=== PATIENT | male | born 1970 | race Caucasian/White ===

== ENCOUNTER 2017-06-22 15:12 | Inpatient (IN) | payer MEDICAID, SELFPAY ==
--- NOTE | 2017-06-22 15:20 | PCM.HP.STD ---
Problem List (1) Multiple sclerosis Status: Chronic (2) Crohns disease Status: Chronic Qualifiers: Gastrointestinal tract location: unspecified location Digestive disease complication type: unspecified complication Qualified Code(s): K50.919 - Crohn's disease, unspecified, with unspecified complications (3) Anxiety and depression Status: Chronic (4) ADHD Status: Chronic Qualifiers: Attention deficit-hyperactivity disorder type: unspecified Qualified Code(s): F90.9 - Attention-deficit hyperactivity disorder, unspecified type (5) Fibromyalgia Status: Chronic (6) Tobacco use Status: Chronic (7) DDD (degenerative disc disease) Status: Chronic Qualifiers: Mid-cervical spinal level: unspecified (8) Chronic back pain Status: Chronic Qualifiers: Back pain location: back pain in unspecified location (9) Sciatica Status: Chronic Qualifiers: Laterality: unspecified laterality Qualified Code(s): M54.30 - Sciatica, unspecified side (10) IV drug abuse Status: Chronic (11) Opiate abuse, continuous Status: Chronic (12) Accidental overdose Status: Chronic Qualifiers: Encounter type: sequela Qualified Code(s): T50.901S - Poisoning by unspecified drugs, medicaments and biological substances, accidental (unintentional), sequela History of Present Illness Date of Admission: 06/22/17 Chief Complaint: Acute Opiate Withdrawal The patient is a 47 y/o M w/ PMHx: DDD w/ Chronic Back Pain, Fibromyalgia, MS, Crohn's Disease, Anxiety and Depression/ADHD, History of IVDA w/ 6 prior OD, accidental with ongoing usage 1 gm-1.5 gm daily fentanyl in addition to occasional Cannabis who presents to the [facility] at [facility] on 06/22/17 w/ noted opiate withdrawal onset starting AM following last dose 7 pm 06/21/17 with following his 6th accidental OD, found per his spouse, requiring EMS evaluation, narcan and oxygen administration with follow-up ED evaluation, now with abdominal pain/cramping, generalized body aches and pains, rhinorrhea, piloerection, fatigue, restless leg, sweating, yawning. Patient interested in attaining clean status. He notes hiding this from his family. He was prior the working spouse, but now his works and he has been taking care of his children, including near toddler twins. Past Medical History Past Medical History (Chronic Problems): Chronic Problems Multiple sclerosis (Chronic) Crohns disease (Chronic) Anxiety and depression (Chronic) ADHD (Chronic) Fibromyalgia (Chronic) Tobacco use (Chronic) DDD (degenerative disc disease) (Chronic) Chronic back pain (Chronic) Sciatica (Chronic) IV drug abuse (Chronic) Opiate abuse, continuous (Chronic) Accidental overdose (Chronic) NKDA Home Medications: Ambulatory Orders Medication Instructions Recorded Atomoxetine HCl [Atomoxetine HCl] 40 mg PO DAILY 06/22/17 Gabapentin [Neurontin] 300 mg PO TID 06/22/17 Hydroxyzine HCl [Hydroxyzine HCl] 25 mg PO Q4H 06/22/17 Ibuprofen [Ibuprofen] 800 mg PO Q6H PRN PRN 06/22/17 Methocarbamol [Robaxin] 1,000 mg PO TID PRN PRN 06/22/17 Tamsulosin HCl [Flomax] 0.4 mg PO QHS 06/22/17 Tamsulosin HCl [Flomax] 0.4 mg PO QHS 06/22/17 traZODone [Desyrel] 100 mg PO QHS 06/22/17 Surgical History: - - Appendectomy, Eye surgery. Lives: Spouse/ Significant Other Smoking Status: Current every day smoker - 2 ppd since youth. Tobacco Use: Cigarettes Alcohol: None Drugs: Marijuana, - - Fentanyl. - *Family History Maternal History Items: No pertinent history Paternal History Items: No pertinent history Review of Systems Constitutional: Reports: Anorexia, Chills, Malaise, Weakness, Fatigue. Denies: Fever, Weight Change HEENT: Reports: Head Aches, Post Nasal Drip, Sinus Congestion, Sinus Drainage Cardiovascular: Denies: Chest Pain, Palpitations Respiratory: Denies: Cough, Shortness of breath at rest, Sputum production Gastrointestinal: Reports: Abdominal Pain, Diarrhea, Nausea. Denies: Vomiting Genitourinary: Denies: Dysuria Musculoskeletal: Reports: Back Pain, Joint Pain, Muscle pain. Denies: Joint Tenderness Skin: Denies: Rash, Wounds Neurological: Denies: Numbness, Tingling, Focal weakness Psychiatric: Reports: Anxiety, Depression. Denies: Homicidal Ideations, Suicidal Ideations Hematologic/ Lymphatic: Denies: Easy Bruising, Easy Bleeding VTE Information - Inpt Only VTE Present on Admission: No VTE Mechan Device Prophylaxis: SCD's VTE Pharm Prophylaxis ordered?: Yes Subjective: Seated upright in the bed, anxious appearing, talking fast. Objective: Physical Examination: General: awake, alert, oriented x 3 and cooperative, seated upright in bed in no apparent distress, mildly anxious appearing. Skin: normal color, turgor, no icterus, cyanosis, last injection LUE, no erythema noted. HEENT: AT/NC, EOMI, PERRLA, dry MM, rhinorrhea noted, no carotid bruits or JVD noted. Lungs: Diminished BS BL, > bases, mildly coarse, improved after coughing, occasional expiratory wheeze noted. Heart: Regular rate and rhythm; no gallop, rub audible. Abdomen: soft, mild generalized TTP, no rebound or guarding, ND, normal BS, no HSM. Extremities: no cyanosis, clubbing, or edema. Neurological: patient awake, alert, oriented x 3; cognitive function intact; pupils equally reactive to light and accomodation; cranial nerves II-XII grossly normal, moving all 4 extremities, no focal deficits, strength moderately globally decreased secondary to acute withdrawal presentation. Psychiatric: affect appears anxious, no acute evidence of depressive feelings. Assessment/Plan The patient is a 47 y/o M w/ PMHx: DDD w/ Chronic Back Pain, Fibromyalgia, MS, Crohn's Disease, Anxiety and Depression/ADHD, History of IVDA w/ 6 prior OD who presents to the [facility] at [facility] on 06/22/17 w/ noted acute opiate withdrawal. (1) Acute Opiate Withdrawal: Will admit to MS, obtain routine labs including CBC, CMP, urine for drug screen, urinalysis, serum lipase, routine EKG and will initiate and continue on [facility] service protocol with tapering course of Subutex, as needed Seroquel, Librium, Sinemet, Catapres, Bentyl, Vistaril, IV fluids, IV antiemetics, Tylenol as needed for pain. Once patient clinically improved and completion of taper nearing will plan [facility] assistance for transition to next level of rehabilitation care. CM consult given usage of IV drugs in the setting of young children. (2) Polysubstance Abuse, IVDA Hx, High Risk Hepatitis C/HIV patient: HIV, hepatitis panel pending. If Hepatitis positive, patient currently not candidate for hep C treatment currently as needs to be clean, sober x 6 months, documented attendance NA or AA meetings, counseling and ongoing negative drug screens. Encouraged PCP establishment and follow-up. (3) Tobacco Abuse: Encouraged cessation, inpatient consultation per RT, NR if desired. (4) History of Multiple Sclerosis: Fall precautions, recommendation continued PCP/Neurology evaluation outpatient, not on regimen. (5) DDD/Chronic Back Pain, Fibromyalgia: Complicates #1, position changes, fall precautions, recommendation continued PCP evaluation outpatient and other modalities for pain control. Continue gabapentin. (6) Crohn's Disease: Encourage GI evaluation outpatient, notes only following w/ PCP, no marked frequent flare history. (7) Anxiety and Depression/ADHD: Maintain on home psychiatric regimen, encourage routine counseling and follow-up. (8) DVT prophylaxis: SCDs, lovenox. Code Visit Inpatient E&M: [id number] Init Hosp L3
[2017-06-22 15:46] VITALS: BP 107/67; PULSE 76; RESP 16; TEMP 36.6; O2SAT 98
[2017-06-22 15:47] VITALS: BMI 21.7
[2017-06-22 15:49] VITALS: BMI 32.7
[2017-06-22 16:30] LABS: Hematocrit 36.2 % (40-54); Hemoglobin 11.9 g/dl (13.0-16.5); Mean Corp Hgb Conc 32.9 g/gl (32-36); Mean Corpuscular Hgb 29.6 pg (27.0-32.0); Mean Platelet Vol. 9.3 fl (6.2-12.0); Platelet Count 338 K/mm3 (150-450); RBC Distribution Width CV 15.8 % (11.6-14.6); RBC Distribution Width SD 52.1 fl (35.1-43.9); Red Blood Count 4.02 M/mm3 (4.6-6.2); White Blood Count 10.2 K/mm3 (4.4-11.0)
[2017-06-22 16:35] LABS: Scan Indicated on CBC? Y/N NO
[2017-06-22 16:40] LABS: Prothrombin Time (Protime)PT. 13.6 SECONDS (11.7-14.9)
[2017-06-22 16:47] LABS: ALB/GLOB Ratio 1.1 RATIO (0.9-2.4); AST(SGOT) 10 U/L (15-37); Alanine Aminotransfer ALT/SGPT 15 U/L (16-61); Albumin, Serum 3.8 g/dL (3.2-5.0); Alkaline Phosphatase 76 U/L (45-117); Anion Gap 5 (5-15); BUN 10 mg/dL (7-18); BUN/Creat Ratio 13.2 RATIO (10-20); Calcium,Total 8.5 mg/dL (8.5-10.1); Chloride 114 mmol/L (98-107); Creatinine, Serum 0.76 mg/dL (0.70-1.30); EST Glomerular Filtration Rate 116 mL/min (>60); Est Glom Filt Rate - Afr Amer 140 mL/min (>60); Estimated Creatinine Clearance 117.22 ml/min; Globulin 3.6 g/dL (2.2-4.2); Glucose 92 mg/dL (74-106); Lipase 73 U/L (73-393); Magnesium 2.2 mg/dL (1.6-2.6); Phosphorus 2.4 mg/dL (2.5-4.9); Potassium 3.4 mmol/L (3.5-5.1); Protein, Total 7.4 g/dL (6.4-8.2); Sodium Level 144 mmol/L (136-145)
[2017-06-22] MEDS: Lactated Ringers 1,000 ML 125 ML IV (17:00)
[2017-06-22] MEDS: Gabapentin 300 MG Capsule 900 MG PO (17:05)
[2017-06-22] MEDS: CLARIFY ORDER NOTE (17:06)
[2017-06-22] MEDS: Buprenorphine HCl 2 MG TAB.SUBL 4 MG SL (17:10)
[2017-06-22] MEDS: chlordiazePOXIDE 25 MG Capsule PO ×2 (17:10→20:53)
[2017-06-22] MEDS: Methocarbamol 750 MG Tablet PO (17:20)
[2017-06-22] MEDS: Dicyclomine 10 MG Capsule 20 MG PO (17:21)
[2017-06-22] MEDS: Pramipexole Di-HCl 0.25 MG Tablet PO (17:21)
[2017-06-22 17:47] LABS: HIV - WCH Non-Reactive (Nonreactive)
[2017-06-22 18:00] VITALS: BP 103/62; PULSE 82; RESP 18; TEMP 36.8
[2017-06-22] MEDS: Ipratropium/Albuterol Sulfate 3 ML AMPUL.NEB INHALATION (19:51)
[2017-06-22 19:53] VITALS: PULSE 62; RESP 16
[2017-06-22] MEDS: Famotidine 20 MG Tablet PO (20:55)
[2017-06-22] MEDS: traZODone 100 MG Tablet PO (20:55)
[2017-06-22] MEDS: Tamsulosin HCl 0.4 MG Capsule PO (20:55)
[2017-06-22 20:57] VITALS: BP 134/77; PULSE 79; RESP 18; TEMP 36.6; O2SAT 92
[2017-06-22] MEDS: QUEtiapine 25 MG Tablet PO (21:12)
[2017-06-22] MEDS: cloNIDine HCl 0.1 MG Tablet PO (21:12)
[2017-06-22] MEDS: Ibuprofen 600 MG Tablet PO (21:12)
[2017-06-22 21:22] VITALS: PULSE 79; RESP 18; O2SAT 92
[2017-06-23] VITALS (17 sets, daily range): BP systolic 109–170; BP diastolic 60–98; PULSE 69–116; RESP 10–18; TEMP 36.4–37.4; O2SAT 91–100
[2017-06-23] MEDS: hydrOXYzine PAM 25 MG Capsule 50 MG PO (00:32)
[2017-06-23] MEDS: chlordiazePOXIDE 25 MG Capsule PO (00:32)
[2017-06-23] MEDS: Acetaminophen 500 MG Tablet PO ×2 (00:32→21:42)
[2017-06-23] MEDS: Buprenorphine HCl 2 MG TAB.SUBL 4 MG SL ×2 (00:32→14:02)
[2017-06-23] MEDS: Ondansetron ODT 4 MG Tablet PO ×3 (00:33→21:55)
[2017-06-23 01:06] LABS: Amphetamine Urine VISTA NEGATIVE (<1000 ng/mL); Barbiturate Urine VISTA NEGATIVE (< 200 ng/mL); Benzodiazepine Urine VISTA POSITIVE (< 200 ng/mL); Cocaine Urine VISTA NEGATIVE (< 300 ng/mL); Ecstacy Urine VISTA NEGATIVE (< 500 ng/mL); Methadone Urine VISTA NEGATIVE (< 300 ng/mL); PCP Urine VISTA NEGATIVE (< 25 ng/mL); THC Urine VISTA POSITIVE (< 50 ng/mL); Vista UDS pH Range 6
[2017-06-23] MEDS: cloNIDine HCl 0.1 MG Tablet PO (04:15)
--- NOTE | 2017-06-23 04:16 | PCM.PN.BLA ---
Progress Note Night hospitalist note: Responded to FISH BIN TENDER at 0410. Pt is admitted to the hospital for medical stabilization for withdrawal from narcotics. Has had six OD's in the past. The most recent a few days ago. He was unarousable but breathing. He finally aroused with a vigorous sternal rub. By the time I arrived he was sitting up in bed and talking. He was on both a Suboxone taper and scheduled Librium every 4 hours and also Trazodone 100 mg at HS. He had The Trazodone, Seroquel 25 mg, 50 mg of Vistaril, suboxone and Librium between 10 PM and MN. He is currently alert and responding appropriately. Will discontinue the Librium and continue the Suboxone taper.
--- NOTE | 2017-06-23 04:20 | NURSING ---
BEAM BUILDER HELPER called at 0405hrs due to pt being unrousable. BLAINE Cam attempted with voice and sternal rub to wake pt with no success prior to calling this nurse who also attempted with BLAINE James to sternal rub patient. Vitals as charted, blood sugar taken and upon arrival of BEAM BUILDER HELPER team further sternal rubs successful. Pt initially disorientated and falling back asleep prior to waking for slightly longer periods. Dr Munoz arrived at 0411hrs and reviewed pt, d/c'ing librium. Cont to monitor pt. No further orders at this time.
[2017-06-23 04:21] LABS: Bedside Glucose 183 mg/dL (70-110)
--- NOTE | 2017-06-23 04:24 | NURSING ---
Went in Pt room to do vitals @0350, could not get Pt to wake up. Sternal rubbed, would still not wake up. Called drapery cutter Sharyn, she sternal rubbed, Pt would still not wake up. Took blood sugar. Called GUN STOCK CHECKER. VOLLEYBALL REFEREEBLAINE brown rubbed and Pt woke up. AOx3. Pt still lethargic, but will open eyes.
--- NOTE | 2017-06-23 04:26 | PN_ITS ---
Progress Note Night hospitalist note: Responded to TIP BANDING MACHINE OPERATOR at 0410. Pt is admitted to the hospital for medical stabilization for withdrawal from narcotics. Has had six OD's in the past. The most recent a few days ago. He was unarousable but breathing. He finally aroused with a vigorous sternal rub. By the time I arrived he was sitting up in bed and talking. He was on both a Suboxone taper and scheduled Librium every 4 hours and also Trazodone 100 mg at HS. He had The Trazodone, Seroquel 25 mg, 50 mg of Vistaril, suboxone and Librium between 10 PM and MN. He is currently alert and responding appropriately. Will discontinue the Librium and continue the Suboxone taper.
[2017-06-23 07:26] LABS: Bedside Glucose 233 mg/dL (70-110)
--- NOTE | 2017-06-23 07:57 | NURSING ---
Went in with Magaly RN to assess patient. Patient was unresponsive. Tried sternal rubbing with no success in waking patient. Rapid response was called. Pt finally responded AOx3. Non-rebreather was placed as O2 was low on nasal canula. Telemetry was placed. Blood sugar rechecked. Dr Manuel discontinued meds and said he will recheck patient 0900, but keeping on floor at this time.
--- NOTE | 2017-06-23 08:52 | NURSING ---
preston quiñonez robotics testing technician and [facility] kong in here to staci pt. pt still with lower resp. opens eyes with verbal stimuli but unable to stay focused or stay awake.
--- NOTE | 2017-06-23 09:31 | PN_ITS ---
Addendum entered and electronically signed by DIANA Trinidad 06/23/17 10:20: Code Visit This patient was seen by DIANA Trinidad under the supervision of Dr. Manuel. Original Note: Subjective: Patient seen and examined. Rapid response was called early this morning due to patient unresponsive. Patient remains lethargic, awakens to light touch. No signs or symptoms of distress. Unable to stay alert for conversation. Sedating medications were discontinued. - Physical Exam General: Lethargic Oral: Dry Mucosa Neck: Supple, No JVD, Negative Carotid Bruits Lungs: Clear to auscultation, Diminished Cardiovascular: Regular rate, Regular Rhythm, Normal S1, Normal S2, No murmurs Abdomen: Bowel Sounds Present, Soft, Non Tender, Non-Distended Extremities: No clubbing, No cyanosis, No edema, Capillary Refill Less than 3 Seconds Skin: No rashes, No breakdown Musculoskeletal: No Tenderness to Palpation of Joints or Extremities Neurological: Cranial nerves II-XII grossly intact, Neuro grossly intact Psych/Mental Status: - - Unable to assess due to lethargy Vital Signs Temp Pulse Resp BP Pulse Ox 97.9 F 69 12 119/74 96 06/23/17 09:00 06/23/17 09:00 06/23/17 09:00 06/23/17 09:00 06/23/17 09:00 Oxygen Flow Rate (L/min) 6 Oxygen Delivery Method Non-Rebreather Weight: 70.488 kg Body Mass Index (BMI) 21.7 Intake and Output for Last 24 Hours 06/21/17 06/22/17 06/23/17 23:59 23:59 23:59 Intake Total 1396 / 1396 Balance 1396 / 1396 Laboratory Tests Past 24 Hrs 06/22/17 06/22/17 06/22/17 16:14 16:14 16:14 WBC 10.2 RBC 4.02 L Hgb 11.9 L Hct 36.2 L MCV 90.0 MCH 29.6 MCHC 32.9 RDW 15.8 H RDW Differential 52.1 H Plt Count 338 MPV 9.3 PT INR Sodium Potassium Chloride Carbon Dioxide Anion Gap BUN Creatinine Estim Creat Clear Calc Est GFR (MDRD) Af Amer Est GFR (MDRD) Non-Af BUN/Creatinine Ratio Glucose Calcium Phosphorus Magnesium Total Bilirubin AST ALT Alkaline Phosphatase Total Protein Albumin Globulin Albumin/Globulin Ratio Lipase Urine Opiates Screen Urine Methadone Screen Ur Barbiturates Screen Ur Phencyclidine Scrn Ur Amphetamines Screen U Methamphetamin-MDMA U Benzodiazepines Scrn Urine Cocaine Screen U Cannabinoids Screen Ur Drug Screen Comment Ethyl Alcohol Hepatitis A IgM Ab Pending Hepatitis A Ab Total Pending Hep Bs Antigen Pending Hep B Core Total Ab Pending Hep B Core IgM Ab Pending Hepatitis C Comment Pending HIV 1&2 Antibody Non-Reactive 06/22/17 06/22/17 06/22/17 16:14 16:14 16:14 WBC RBC Hgb Hct MCV MCH MCHC RDW RDW Differential Plt Count MPV PT 13.6 INR 1.0 Sodium 144 Potassium 3.4 L Chloride 114 H Carbon Dioxide 25.0 Anion Gap 5 BUN 10 Creatinine 0.76 Estim Creat Clear Calc 117.22 Est GFR (MDRD) Af Amer 140 Est GFR (MDRD) Non-Af 116 BUN/Creatinine Ratio 13.2 Glucose 92 Calcium 8.5 Phosphorus 2.4 L Magnesium 2.2 Total Bilirubin 0.70 AST 10 L ALT 15 L Alkaline Phosphatase 76 Total Protein 7.4 Albumin 3.8 Globulin 3.6 Albumin/Globulin Ratio 1.1 Lipase 73 Urine Opiates Screen Urine Methadone Screen Ur Barbiturates Screen Ur Phencyclidine Scrn Ur Amphetamines Screen U Methamphetamin-MDMA U Benzodiazepines Scrn Urine Cocaine Screen U Cannabinoids Screen Ur Drug Screen Comment Ethyl Alcohol 5.0 Hepatitis A IgM Ab Hepatitis A Ab Total Hep Bs Antigen Hep B Core Total Ab Hep B Core IgM Ab Hepatitis C Comment HIV 1&2 Antibody 06/23/17 00:35 WBC RBC Hgb Hct MCV MCH MCHC RDW RDW Differential Plt Count MPV PT INR Sodium Potassium Chloride Carbon Dioxide Anion Gap BUN Creatinine Estim Creat Clear Calc Est GFR (MDRD) Af Amer Est GFR (MDRD) Non-Af BUN/Creatinine Ratio Glucose Calcium Phosphorus Magnesium Total Bilirubin AST ALT Alkaline Phosphatase Total Protein Albumin Globulin Albumin/Globulin Ratio Lipase Urine Opiates Screen NEGATIVE Urine Methadone Screen NEGATIVE Ur Barbiturates Screen NEGATIVE Ur Phencyclidine Scrn NEGATIVE Ur Amphetamines Screen NEGATIVE U Methamphetamin-MDMA NEGATIVE U Benzodiazepines Scrn POSITIVE H Urine Cocaine Screen NEGATIVE U Cannabinoids Screen POSITIVE H Ur Drug Screen Comment Ethyl Alcohol Hepatitis A IgM Ab Hepatitis A Ab Total Hep Bs Antigen Hep B Core Total Ab Hep B Core IgM Ab Hepatitis C Comment HIV 1&2 Antibody POC Glucose 06/23/17 06/23/17 07:20 04:07 POC Glucose 233 H 183 H Medical Necessity - Tobacco Use Smoking Status: Current every day smoker Tobacco Use: Cigarettes Assessment/Plan Patient is a 47-year-old male admitted 06/22/2017 due to acute opiate withdrawal. He has a past medical history of degenerative disc disease with chronic back pain, fibromyalgia, multiple sclerosis, Crohn's disease, anxiety, depression, ADHD, history of 6 prior overdoses. 1. Acute opiate withdrawal-history of polysubstance abuse with 6 prior overdoses. Urine drug screen positive for benzodiazepines and cannabinoids. Medical stabilization per protocol. Patient was a rapid response this morning due to unresponsiveness. He is now arousable to light touch. Librium discontinued. Continue Suboxone taper. We will continue to monitor. 2. Tobacco dependence-encourage smoking cessation. Continue nicotine replacement patch. 3. Multiple sclerosis-not on home regimen. 4. Degenerative disc disease with chronic back pain, fibromyalgia-continue gabapentin regimen. 5. Crohn's disease-continue outpatient follow-up. 6. Anxiety/depression/ADHD-continue home regimen. DVT prophylaxis-SCDs, Lovenox subcu.
[2017-06-23] MEDS: Multivitamins,Ther W-Minerals Tablet 1 TABLET PO ×2 (13:59)
[2017-06-23] MEDS: Folic Acid 1 MG Tablet PO ×2 (13:59)
[2017-06-23] MEDS: Tamsulosin HCl 0.4 MG Capsule PO (13:59)
[2017-06-23] MEDS: Famotidine 20 MG Tablet PO ×2 (14:00)
--- NOTE | 2017-06-23 15:49 | CHAPLAIN ---
Type of Pastoral Visit ___ Initial Visit ___ Follow-up Visit ___ On-call Visit ___ General Patient Visit ___ Spiritual Assessment ___ Family Conference ___ Bereavement _x__ Rapid Response ___ Code Blue ___ Other (describe below) Pastoral Care Referral From ___ Patient ___ Family ___ Nurse ___ Physician ___ Medical Office Technology Instructor ___ Special Library Librarian ___ Other (describe below) Sacrament/Intervention ___ Active listening ___ Anointing ___ Hinduism ___ Bereavement ___ Communion ___ Roseann exploration ___ ___ Life review _x__ Prayer ___ Reconciliation ___ Sacrament of Sick _x__ Supportive presence ___ Wedding ___ Other (describe below) Pastoral Comments patient is sedated after rapid response; offered prayer and left a calling card for patient to read later
[2017-06-23] MEDS: Buprenorphine HCl 2 MG TAB.SUBL SL (21:42)
[2017-06-23] MEDS: Ibuprofen 600 MG Tablet PO (23:25)
[2017-06-23] MEDS: traZODone 100 MG Tablet PO (23:30)
[2017-06-24] VITALS (9 sets, daily range): BP systolic 106–121; BP diastolic 57–82; PULSE 51–87; RESP 16–18; TEMP 36.5–37.2; O2SAT 95
[2017-06-24 03:07] LABS: HEPATITIS B SURFACE AG Negative (Negative); Hepatitis A AB, Total Positive (Negative); Hepatitis A IgM Antibody Negative (Negative); Hepatitis B Core AB IgM Negative (Negative); Hepatitis B Core Ab Total Negative (Negative); Hepatitis C Ab 0.1 s/co ratio (0.0-0.9)
[2017-06-24] MEDS: Buprenorphine HCl 2 MG TAB.SUBL SL ×2 (05:42→14:19)
[2017-06-24] MEDS: Acetaminophen 500 MG Tablet PO ×2 (05:46→11:28)
[2017-06-24] MEDS: Thiamine Hydrochloride 100 MG Tablet PO (07:58)
[2017-06-24] MEDS: Famotidine 20 MG Tablet PO ×2 (07:59→21:35)
[2017-06-24] MEDS: ATOMOXETINE HCL 40 MG CAPSULE PO (07:59)
[2017-06-24] MEDS: Gabapentin 300 MG Capsule 900 MG PO ×3 (07:59→16:46)
[2017-06-24] MEDS: Ondansetron ODT 4 MG Tablet PO (08:03)
[2017-06-24 09:14] LABS: Hep B Surface Antibodies Non Reactive (.)
--- NOTE | 2017-06-24 09:27 | PCM.PROGNOTE ---
Subjective: Patient seen and examined. States he feels better physically. States emotionally he feels discouraged and upset with himself. Denies other complaints. Awake and alert today. Appears stable. - Physical Exam General: Alert, Oriented x3, Cooperative, No apparent distress HEENT: Atraumatic, PERRLA, EOMI, Normocephalic Neck: Supple, No JVD, Negative Carotid Bruits Lungs: Diminished, Rhonchi - few, scattered. Cardiovascular: Regular rate, Regular Rhythm, Normal S1, Normal S2, No murmurs Abdomen: Bowel Sounds Present, Soft, Non Tender, Non-Distended Extremities: No clubbing, No cyanosis, No edema, Capillary Refill Less than 3 Seconds Skin: No rashes, No breakdown Musculoskeletal: No Tenderness to Palpation of Joints or Extremities Neurological: Cranial nerves II-XII grossly intact, Neuro grossly intact Psych/Mental Status: Normal Affect, Appropriate Vital Signs Temp Pulse Resp BP Pulse Ox 97.8 F 64 18 118/81 H 94 06/24/17 07:48 06/24/17 08:43 06/24/17 07:48 06/24/17 07:48 06/23/17 21:43 Oxygen Flow Rate (L/min) 3 Oxygen Delivery Method Room Air Weight: 70.488 kg Body Mass Index (BMI) 21.7 Intake and Output for Last 24 Hours 06/22/17 06/23/17 06/24/17 23:59 23:59 23:59 Intake Total 2556 / 2556 320 / 320 Output Total 2300 / 2300 Balance 256 / 256 320 / 320 Laboratory Tests Past 24 Hrs 06/22/17 16:14 Hepatitis A IgM Ab Negative Hepatitis A Ab Total Positive H Hep Bs Antigen Negative Hep B Core Total Ab Negative Hep B Core IgM Ab Negative Hepatitis C Ab Confirm 0.1 Hepatitis C Comment Comment Medical Necessity - Tobacco Use Smoking Status: Current every day smoker Tobacco Use: Cigarettes Assessment/Plan Patient is a 47-year-old male admitted 06/22/2017 due to acute opiate withdrawal. He has a past medical history of degenerative disc disease with chronic back pain, fibromyalgia, multiple sclerosis, Crohn's disease, anxiety, depression, ADHD, history of 6 prior overdoses. 1. Acute opiate withdrawal-history of polysubstance abuse with 6 prior overdoses. Urine drug screen positive for benzodiazepines and cannabinoids. Medical stabilization per protocol. Patient was a rapid response this admission due to unresponsiveness. He is now awake, alert and oriented. Librium discontinued. Continue Suboxone taper. Will continue to monitor. 2. Toxic encephalopathy-secondary to sedating drug regimen. Resolved. 3. Tobacco dependence-encourage smoking cessation. Continue nicotine replacement patch. 4. Multiple sclerosis-not on home regimen. 5. Degenerative disc disease with chronic back pain, fibromyalgia-continue gabapentin regimen. 6. Crohn's disease-continue outpatient follow-up. 7. Anxiety/depression/ADHD-continue home regimen. 8. History of hepatitis A- Hep panel positive for hep A antibody, negative for hepatitis IgM. DVT prophylaxis-SCDs This patient was seen by DIANA Trinidad under the supervision of Dr. Manuel.
[2017-06-24] MEDS: Ibuprofen 600 MG Tablet PO (14:21)
[2017-06-24] MEDS: traZODone 100 MG Tablet PO (21:35)
[2017-06-24] MEDS: Tamsulosin HCl 0.4 MG Capsule PO (21:35)
[2017-06-25] VITALS (7 sets, daily range): BP systolic 125–133; BP diastolic 75–80; PULSE 66–85; RESP 16–20; TEMP 36.5–37.2; O2SAT 92–98
[2017-06-25] MEDS: Acetaminophen 500 MG Tablet PO ×3 (01:55→20:43)
[2017-06-25] MEDS: Buprenorphine HCl 2 MG TAB.SUBL SL ×2 (01:55→13:48)
[2017-06-25] MEDS: Ibuprofen 600 MG Tablet PO ×2 (01:56→19:26)
[2017-06-25] MEDS: Thiamine Hydrochloride 100 MG Tablet PO (08:38)
[2017-06-25] MEDS: Folic Acid 1 MG Tablet PO (08:38)
[2017-06-25] MEDS: Multivitamins,Ther W-Minerals Tablet 1 TABLET PO (08:38)
[2017-06-25] MEDS: Gabapentin 300 MG Capsule 900 MG PO ×3 (08:38→22:34)
[2017-06-25] MEDS: ATOMOXETINE HCL 40 MG CAPSULE PO (10:22)
[2017-06-25] MEDS: Famotidine 20 MG Tablet PO ×2 (10:22→22:34)
--- NOTE | 2017-06-25 10:27 | PN_ITS ---
Subjective: Patient seen and examined. States he has been feeling like bugs are crawling on his skin and has been hallucinating. Plan is for discharge to residential treatment facility Tuesday morning. Patient states he cannot return home in the meantime due to children's services investigation. Patient complains of anxiety and tremors. Denies other complaints. - Physical Exam General: Alert, Oriented x3, Cooperative, No apparent distress HEENT: Atraumatic, PERRLA, EOMI, Normocephalic Neck: Supple, No JVD, Negative Carotid Bruits Lungs: Clear to auscultation, Normal air movement Cardiovascular: Regular rate, Regular Rhythm, Normal S1, Normal S2, No murmurs Abdomen: Bowel Sounds Present, Soft, Non Tender Extremities: No clubbing, No cyanosis, No edema, Capillary Refill Less than 3 Seconds Skin: No rashes, No breakdown Musculoskeletal: No Tenderness to Palpation of Joints or Extremities Neurological: Cranial nerves II-XII grossly intact, Neuro grossly intact Psych/Mental Status: Normal Affect, Appropriate Vital Signs Temp Pulse Resp BP Pulse Ox 98.0 F 83 18 133/80 H 96 06/25/17 02:07 06/25/17 02:07 06/25/17 02:07 06/25/17 02:07 06/25/17 02:07 Oxygen Flow Rate (L/min) 3 Oxygen Delivery Method Room Air Weight: 70.488 kg Body Mass Index (BMI) 21.7 Intake and Output for Last 24 Hours 06/23/17 06/24/17 06/25/17 23:59 23:59 23:59 Intake Total 2556 / 2556 1120 / 1120 650 / 650 Output Total 2300 / 2300 Balance 256 / 256 1120 / 1120 650 / 650 Medical Necessity - Tobacco Use Smoking Status: Current every day smoker Tobacco Use: Cigarettes Assessment/Plan Patient is a 47-year-old male admitted 06/22/2017 due to acute opiate withdrawal. He has a past medical history of degenerative disc disease with chronic back pain, fibromyalgia, multiple sclerosis, Crohn's disease, anxiety, depression, ADHD, history of 6 prior overdoses. 1. Acute opiate withdrawal-history of polysubstance abuse with 6 prior overdoses. Urine drug screen positive for benzodiazepines and cannabinoids. Medical stabilization per protocol. Patient was a rapid response this admission due to unresponsiveness. He is now awake, alert and oriented. Librium discontinued. Continue Suboxone taper. Will continue to monitor. 2. Toxic encephalopathy-secondary to sedating drug regimen. Resolved. 3. Tobacco dependence-encourage smoking cessation. Continue nicotine replacement patch. 4. Multiple sclerosis-not on home regimen. 5. Degenerative disc disease with chronic back pain, fibromyalgia-continue gabapentin regimen. 6. Crohn's disease-continue outpatient follow-up. 7. Anxiety/depression/ADHD-continue home regimen. 8. History of hepatitis A- Hep panel positive for hep A antibody, negative for hepatitis IgM. DVT prophylaxis-SCDs Discharge planning-Plan for discharge to [facility] 06/27/17 0830. This patient was seen by DIANA Trinidad under the supervision of Dr. Manuel.
--- NOTE | 2017-06-25 10:36 | NURSING ---
phone call received by this RN from a Bo Buck (cell #[phone]) regarding discharge plans. Bo runs [facility], 90 day inpatient program. Bo inquiring whether patient would be able to stay until Tuesday and be admitted right into inpatient program, he feels this will be safer for patient regarding relapse risk. Verified this information with patient who states he will be going there at discharge and no longer going to [facility]. Patient states he will be able to find own transportation to inpatient facility. Will consult with .
--- NOTE | 2017-06-25 11:31 | NURSING ---
notified Bo at [facility] and patient that will plan to discharge Tuesday. patient states he will contact [facility] for transportation to center.
[2017-06-25] MEDS: Tamsulosin HCl 0.4 MG Capsule PO (22:34)
[2017-06-25] MEDS: traZODone 100 MG Tablet PO (22:34)
[2017-06-26] MEDS: Gabapentin 300 MG Capsule 900 MG PO ×3 (06:02→21:38)
[2017-06-26] MEDS: Acetaminophen 500 MG Tablet PO ×2 (06:04→14:56)
[2017-06-26] MEDS: Thiamine Hydrochloride 100 MG Tablet PO (08:36)
[2017-06-26] MEDS: Multivitamins,Ther W-Minerals Tablet 1 TABLET PO (08:36)
[2017-06-26] MEDS: Folic Acid 1 MG Tablet PO (08:36)
[2017-06-26 08:37] VITALS: BP 137/66; PULSE 67; RESP 18; TEMP 36
[2017-06-26] MEDS: ATOMOXETINE HCL 40 MG CAPSULE PO (10:37)
[2017-06-26] MEDS: Famotidine 20 MG Tablet PO ×2 (10:37→21:37)
[2017-06-26] MEDS: Ibuprofen 600 MG Tablet PO ×2 (10:42→20:49)
[2017-06-26 10:45] VITALS: PULSE 76
--- NOTE | 2017-06-26 12:31 | PN_ITS ---
Subjective: Patient seen and examined. Plans for discharge to residential inpatient treatment facility tomorrow. Patient states he feels well. Continues to complain of intermittent hallucinations. States he sees something in the shape of a mouse that will appear to read by him on occasion. Patient also states he is not able to be on gabapentin at treatment facility and wonders if there is a substitution for this medication. - Physical Exam General: Alert, Oriented x3, Cooperative, No apparent distress HEENT: Atraumatic, PERRLA, EOMI, Normocephalic Neck: Supple, No JVD, Negative Carotid Bruits Lungs: Clear to auscultation, Normal air movement Cardiovascular: Regular rate, Regular Rhythm, Normal S1, Normal S2, No murmurs Abdomen: Bowel Sounds Present, Soft, Non Tender, Non-Distended Extremities: No clubbing, No cyanosis, No edema, Capillary Refill Less than 3 Seconds Skin: No rashes, No breakdown Musculoskeletal: No Tenderness to Palpation of Joints or Extremities Neurological: Cranial nerves II-XII grossly intact, Neuro grossly intact Psych/Mental Status: Normal Affect, Appropriate Vital Signs Temp Pulse Resp BP Pulse Ox 96.8 F L 76 18 137/66 H 98 06/26/17 08:37 06/26/17 10:45 06/26/17 08:37 06/26/17 08:37 06/25/17 20:16 Oxygen Flow Rate (L/min) 3 Oxygen Delivery Method Room Air Weight: 70.488 kg Body Mass Index (BMI) 21.7 Intake and Output for Last 24 Hours 06/24/17 06/25/17 06/26/17 23:59 23:59 23:59 Intake Total 1120 / 1120 1290 / 1290 Balance 1120 / 1120 1290 / 1290 Medical Necessity - Tobacco Use Smoking Status: Current every day smoker Tobacco Use: Cigarettes Assessment/Plan Patient is a 47-year-old male admitted 06/22/2017 due to acute opiate withdrawal. He has a past medical history of degenerative disc disease with chronic back pain, fibromyalgia, multiple sclerosis, Crohn's disease, anxiety, depression, ADHD, history of 6 prior overdoses. 1. Acute opiate withdrawal-history of polysubstance abuse with 6 prior overdoses. Urine drug screen positive for benzodiazepines and cannabinoids. Medical stabilization per protocol. Patient was a rapid response this admission due to unresponsiveness. He is now awake, alert and oriented. Librium discontinued. Suboxone taper completed. 2. Toxic encephalopathy-secondary to sedating drug regimen. Resolved. 3. Tobacco dependence-encourage smoking cessation. Continue nicotine replacement patch. 4. Multiple sclerosis-not on home regimen. 5. Degenerative disc disease with chronic back pain, fibromyalgia-taper gabapentin given patient is not able to take at treatment facility. Continue Motrin 600 mg q. 8 as needed. 6. Crohn's disease-continue outpatient follow-up. 7. Anxiety/depression/ADHD-continue home regimen. 8. History of hepatitis A- Hep panel positive for hep A antibody, negative for hepatitis IgM. DVT prophylaxis-SCDs Discharge planning-Plan for discharge to [facility] 06/27/17 0830. This patient was seen by DIANA Trinidad under the supervision of Dr. Manuel.
[2017-06-26 13:18] VITALS: O2SAT 94
[2017-06-26 15:08] VITALS: BP 122/71; PULSE 77; RESP 18; TEMP 36.4
[2017-06-26 15:09] VITALS: O2SAT 100
[2017-06-26 21:35] VITALS: BP 124/77; PULSE 60; RESP 15; TEMP 35.7
[2017-06-26] MEDS: traZODone 100 MG Tablet PO (21:37)
[2017-06-26] MEDS: Tamsulosin HCl 0.4 MG Capsule PO (21:37)
[2017-06-27] VITALS: RESP 15
[2017-06-27 06:00] VITALS: BP 105/78; PULSE 70; RESP 15; TEMP 35.8; O2SAT 96
[2017-06-27] MEDS: Gabapentin 300 MG Capsule 900 MG PO (06:32)
[2017-06-27 07:08] VITALS: O2SAT 95
[2017-06-27 07:34] VITALS: BP 107/75; PULSE 67; RESP 18; TEMP 36.7; O2SAT 98
[2017-06-27 07:35] VITALS: BP 107/75; PULSE 67; RESP 18; TEMP 36.7
[2017-06-27] MEDS: Multivitamins,Ther W-Minerals Tablet 1 TABLET PO (07:38)
[2017-06-27] MEDS: Folic Acid 1 MG Tablet PO (07:38)
[2017-06-27] MEDS: Famotidine 20 MG Tablet PO (07:38)
[2017-06-27] MEDS: ATOMOXETINE HCL 40 MG CAPSULE PO (07:39)
[2017-06-27] MEDS: Thiamine Hydrochloride 100 MG Tablet PO (07:39)
--- NOTE | 2017-06-27 07:53 | PCM.DC ---
- Discharge Diagnoses Current Active Problems: Current Active and Chronic Problems Multiple sclerosis (Chronic) Crohns disease (Chronic) Anxiety and depression (Chronic) ADHD (Chronic) Fibromyalgia (Chronic) Tobacco use (Chronic) DDD (degenerative disc disease) (Chronic) Chronic back pain (Chronic) Sciatica (Chronic) IV drug abuse (Chronic) Opiate abuse, continuous (Chronic) Accidental overdose (Chronic) Reason(s) for Visit for Discharge Instructions: Opiate withdrawal You will use the following diet at home:: Regular Your food should be the consistency of: Regular Your liquids should be the consistency of: Regular/Thin Discharge Activity: Return to Normal Activity Additional Instructions: You have been strongly advised to avoid using opiates. Follow-up with your outpatient program as planned. Allergies/Adverse Reactions: Allergies No Known Allergies Allergy (Verified 06/22/17 15:47) Medications to take at Discharge Atomoxetine HCl 40 mg PO DAILY 06/22/17 Gabapentin [Neurontin] 900 mg PO TID 06/22/17 Hydroxyzine HCl 25 mg PO Q4H PRN PRN 06/22/17 Ibuprofen 800 mg PO Q6H PRN PRN 06/22/17 Methocarbamol [Robaxin] 1,000 mg PO TID PRN PRN 06/22/17 Tamsulosin HCl [Flomax] 0.4 mg PO QHS 06/22/17 traZODone [Desyrel] 100 mg PO QHS 06/22/17 Primary Care Physician: Yesi Darling,Out of [Primary Care Provider] - Please follow up with your Primary Care Physician in: in 2-3 weeks after discharge Proposed Discharge Date: 06/27/17
--- NOTE | 2017-06-27 08:17 | DS.PCM_ITS ---
Discharge Date and Diagnosis Date of Admission: 06/22/17 Date of Discharge: 06/27/17 - Primary Discharge Diagnosis Opiate withdrawal Hypokalemia - Secondary Discharge Diagnosis Chronic Problems Multiple sclerosis (Chronic) Crohns disease (Chronic) Anxiety and depression (Chronic) ADHD (Chronic) Fibromyalgia (Chronic) Tobacco use (Chronic) DDD (degenerative disc disease) (Chronic) Chronic back pain (Chronic) Sciatica (Chronic) IV drug abuse (Chronic) Opiate abuse, continuous (Chronic) Accidental overdose (Chronic) Hospital Course and Treatment None Operations: None Procedures: None Summary of Care Provided: Patient is a 47-year-old male admitted 06/22/2017 due to acute opiate withdrawal. He has a past medical history of degenerative disc disease with chronic back pain, fibromyalgia, multiple sclerosis, Crohn's disease, anxiety, depression, ADHD, history of 6 prior overdoses. 1. Acute opiate withdrawal, in a patient with history of polysubstance abuse with 6 prior overdoses. Urine drug screen positive for benzodiazepines and cannabinoids. He was admitted for medical stabilization per [facility] protocol. Patient was a rapid response in the morning following admission due to unresponsiveness, he was subsequently responsive to light touch. His admitting Librium regimen was discontinued. No other events over the course of 3 days in the hospital. He was continued on Suboxone taper and improved. He was discharged to continue with outpatient residential program. 2. Tobacco dependence-encourage smoking cessation. Managed on nicotine replacement patch. 3. Multiple sclerosis-not on home regimen. 4. Degenerative disc disease with chronic back pain, fibromyalgia, on gabapentin regimen. 5. Crohn's disease-needs to continue in the outpatient. 6. Anxiety/depression/ADHD Discharge Diet: No Restrictions Discharge Activity: Return to Normal Activity Home Medications: Medications to take at Discharge Atomoxetine HCl 40 mg PO DAILY 06/22/17 Gabapentin [Neurontin] 900 mg PO TID 06/22/17 Hydroxyzine HCl 25 mg PO Q4H PRN PRN 06/22/17 Ibuprofen 800 mg PO Q6H PRN PRN 06/22/17 Methocarbamol [Robaxin] 1,000 mg PO TID PRN PRN 06/22/17 Tamsulosin HCl [Flomax] 0.4 mg PO QHS 06/22/17 traZODone [Desyrel] 100 mg PO QHS 06/22/17 Primary Care Physician: Town Doctor,Out of [Primary Care Provider] - Please follow up with your Primary Care Physician in: in 2-3 weeks after discharge Disposition: Home Minutes spent on discharge:: 25 Patient Condition:: Stable Medical Necessity - Tobacco Use Smoking Status: Current every day smoker Tobacco Use: Cigarettes Meaningful Use Info Meaningful Use Diagnoses (Choose all that apply): None applicable Code Visit Inpatient E&M: 00769 Disch Hosp
[2017-06-27 08:19] LABS: Anion Gap 7 (5-15); BUN 11 mg/dL (7-18); BUN/Creat Ratio 15.3 RATIO (10-20); Calcium,Total 9.2 mg/dL (8.5-10.1); Chloride 103 mmol/L (98-107); Creatinine, Serum 0.72 mg/dL (0.70-1.30); EST Glomerular Filtration Rate 124 mL/min (>60); Est Glom Filt Rate - Afr Amer 150 mL/min (>60); Estimated Creatinine Clearance 123.73 ml/min; Glucose 114 mg/dL (74-106); Potassium 4.1 mmol/L (3.5-5.1); Sodium Level 140 mmol/L (136-145)
[2017-06-27 10:01] LABS: Hemoglobin A1c 5.6 % (4.2-6.3)
== END 2017-06-27 10:16 | disposition home or self-care (01) | DRG 434 ==
PROVIDERS: Internal Medicine; Admitting Provider Family Medicine; Visit Provider Internal Medicine
DX: F11.23 Opioid dependence with withdrawal (principal); G35 Multiple sclerosis; G92 Toxic encephalopathy; K50.90 Crohn's disease, unspecified, without complications; F41.8 Other specified anxiety disorders; F90.9 Attention-deficit hyperactivity disorder, unspecified type; T42.6X5A Adverse effect of other antiepileptic and sedative-hypnotic drugs, initial encounter; Y92.239 Unspecified place in hospital as the place of occurrence of the external cause; E87.6 Hypokalemia; F41.9 Anxiety disorder, unspecified; F32.9 Major depressive disorder, single episode, unspecified; I25.10 Atherosclerotic heart disease of native coronary artery without angina pectoris; F17.210 Nicotine dependence, cigarettes, uncomplicated; M79.7 Fibromyalgia; M54.9 Dorsalgia, unspecified; G89.29 Other chronic pain; M54.30 Sciatica, unspecified side; F12.20 Cannabis dependence, uncomplicated; Z79.899 Other long term (current) drug therapy
CPT/HCPCS: 36415; 80048; 80053; 80307; 80320; 82962; 83036; 83690; 83735; 84100; 85027; 85610; 86703; 86704; 86705; 86706; 86708; 86709; 86803; 87340; 94640; 99406; J7120; G0480